=== PATIENT | female | born 1950 | race Caucasian/White ===

== ENCOUNTER 2017-11-26 08:39 | Emergency (ER) | payer MEDICARE, SELFPAY ==
[2017-11-26 08:40] VITALS: BP 158/80; PULSE 49; RESP 17; TEMP 36.5; O2SAT 97; BMI 25.2
[2017-11-26 11:16] VITALS: BP 191/87; PULSE 69; RESP 18; O2SAT 97
--- NOTE | 2017-11-26 12:15 | ED.VIS.GEN ---
History of Present Illness Chief Complaint: Allergic Reaction Informant: Patient Onset: Today Context: Sudden Onset - After receiving Versed 2 mg IV Timing: Continuous Quality: dizzy, nausea Current Severity: Mild Maximum Severity: Moderate Worsened by: movement Relieved by: remaining still Narrative: Patient was scheduled for cataract surgery this morning, as part of her induction she was initially given Versed, and she then developed dizziness and nausea. It is unclear how quickly the symptoms started or if there were any other potential etiologic events, the patient can provide very little information/history, I did not receive a call about this patient otherwise. She was sent to the ER for further evaluation. She states she has not had this before. She thinks that she had either Ativan or Valium long time ago but does not recall. She does not remember having a reaction to those. When attempting to ask details about the dizziness, it is clear that the patient does not feel well and does not want to talk. She denies feeling spinning or sensation of movement, or feeling lightheaded or near syncopal. She states when the dizziness gets worse, it makes her feel nauseated, she does not feel nauseated right now. She received some dose of Zofran prior to arriving here. - Past Medical History (1) HTN (hypertension) Status: Chronic (2) Hyperlipidemia Status: Chronic (3) Cataracts, bilateral Status: Chronic (4) Hypothyroidism Status: Chronic Past Medical History - Allergies and Home Meds Allergies/Adverse Reactions: Allergies codeine Allergy (Verified 11/26/17 08:44) Unknown lisinopril Allergy (Verified 11/26/17 08:44) Hives midazolam [From Versed] Allergy (Verified 11/26/17 08:44) Shortness of breath Primary Care Physician: Mo Moreland, [employer] [Primary Care Provider] - Lives: Spouse/ Significant Other Smoking Status: Current every day smoker Review of Systems All systems negative except as indicated General: Reports: Malaise, - - dizziness Gastrointestinal: Reports: Nausea Physical Exam Vital Signs/Narrative: Vital Signs Temp Pulse Resp BP Pulse Ox 11/26/17 11:16 69 18 191/87 H 97 11/26/17 08:40 97.7 F L 49 L 17 158/80 H 97 Inital Vital Signs reviewed: Yes General: Well nourished, Well developed Head: Normocephalic, Atraumatic Eyes: Perrl, EOMI ENT: Moist mucous membranes, No rhinorrhea Neck: Supple, Nontender, No lymphadenopathy Cardiovascular: Regular rate, Regular rhythm, No murmurs Respiratory: No distress, CTA bilaterally, Chest nontender Abdomen: Soft, Nontender, Nondistended, Normal bowel sounds Back: Nontender, Normal Inspection Extremities: Nontender, No edema Skin: Normal color, No rash Neurological: Alert, Oriented x3, Cranial nerves II-XII grossly intact, Normal Strength, Normal Sensation Psychological: Normal affect Diagnostic/Tx/Re-eval - Medical Decision Making Patient was monitored for couple hours, her symptoms gradually and completely resolved. She feels better. I discussed with Dr. Gallegos, on-call for Dr. Fernández who was going to be her surgeon, he will pass the message along and it is okay to discharge her home, they will follow-up on rescheduling her surgery. ED Disposition - Plan for ED Patient: Disposition: Home or Assisted Living Chief Complaint: Allergic Reaction Diagnosis: Medication reaction Instructions: ED Drug React Adverse Other Referrals: Mo Moreland NP-Rodger [Primary Care Provider] - Markos Fernández MD [STAFF PHYSICIAN] - Additional Instructions: Your eye doctor will get in touch with you about rescheduling your surgery.
== END 2017-11-26 12:36 | disposition home or self-care (01) ==
PROVIDERS: Emergency Provider Emergency Medicine; Family Provider Nurse Practitioner Family; PCP Nurse Practitioner Family
DX: R42 Dizziness and giddiness (principal); T42.4X5A Adverse effect of benzodiazepines, initial encounter; Y92.239 Unspecified place in hospital as the place of occurrence of the external cause; I10 Essential (primary) hypertension; E78.5 Hyperlipidemia, unspecified; E03.9 Hypothyroidism, unspecified; F17.200 Nicotine dependence, unspecified, uncomplicated
CPT/HCPCS: 99284

== ENCOUNTER → 2019-02-14 14:20 | Outpatient (CLI) | payer MEDICARE, SELFPAY ==
--- NOTE | 2019-02-14 14:23 | CT_ITS ---
STUDY: LOW DOSE CT LUNG CANCER SCREENING REASON FOR EXAM: Female, 68 years old. Lung screening RADIATION DOSAGE (If Supplied By Facility): CTDIvol = ( 1.70 ) mGy, DLP = ( 53.61 ) mGycm TECHNIQUE: No contrast was administered. Low dose technique was utilized (average mAS-38 and kVp 120). 1.25 mm axial source images with a slice interval of 1.25-mm were reconstructed in lung windows. 2.5 mm axial source images with a slice interval of 2.5-mm were reconstructed in lung windows. 5.0 mm axial source images with a slice interval of 5.0-mm were reconstructed in soft tissue windows. Nodule measured using lung windows on PACS and/or independent workstation with automated measurement of minimum and maximum diameter. Nodule measurement reported as average diameter rounded to the nearest whole number. Growth is defined as an increase ins size of greater than 1.5 mm. COMPARISON: None. Findings: There are no focal high-risk pulmonary findings. There is moderate apical predominant emphysema. Central airways are patent. Pleural surfaces are intact. Mediastinal contents are evaluated in the limited fashion due to limitations of the scan. Cardiac chambers are normal in size and shape. There is advanced coronary artery disease. Pericardium is normal. Osseous structures are intact. There is likely demineralization/osteoporosis. CT/Low Dose CT Lung Screening IMPRESSION: 1. Lung-RADS category 1. 2. Moderate emphysema. 3. At least moderate coronary artery disease. Cardiology referral is advised. 4. Presumed osteoporosis. Endocrinology referral is advised. IMPORTANT NOTES FOR USE: ACR Lung-RADS Version 1.0 Assessment Categories Release Date: July 25, 2013 Category: Coded 0-4 bases on nodule(s) with highest degree of suspicion. Negative screen is defined as categories 1 and 2; a positive screen is defined as categories 3 and 4. Category 3 and 4A nodules that are unchanged on interval CT should be coded as category 2, and individuals returned to screening in 12 months. Category 4X: Category 3 or 4 nodules with additional imaging findings that increase the suspicion of lung cancer, such as spiculation, GGN that doubles in size in 1 year, enlarged lymph notes, etc. Category Modifiers: S (significant finding unrelated to lung cancer) and C (prior history of treated lung cancer) may be added to the 0-4 Lung-RADS Electronically Signed: Jeffrey Cole, at 17:44 EST Tel , Service support ,
== END ==
PROVIDERS: Family Provider Nurse Practitioner Family; PCP Nurse Practitioner Family
DX: F17.210 Nicotine dependence, cigarettes, uncomplicated (principal)
CPT/HCPCS: G0297

== ENCOUNTER → 2020-08-31 08:00 | Outpatient (CLI) | payer MEDICARE, MEDICAID, SELFPAY ==
--- NOTE | 2020-08-31 08:03 | AAVD_ITS ---
Reason For Study: AAA w/o rupture Aorta Measurements Aorta Doppler Measurements Proximal aorta measures2.26 x 2.26cm. in cross- Peak systolic flow velocities within the proximal sectional axis. aorta measure 71.6 cm/sec. Proximal aorta measures2.27cm. in longitudinal Peak systolic flow velocities within the mid aorta axis. measure 53.4 cm/sec. Mid aorta measures3.54 x 4.24cm. in cross- Peak systolic flow velocities within the distal sectional axis. aorta measure 29.6 cm/sec. Mid aorta measures3.68cm. in longitudinal axis. Distal aorta measures2.30 x 2.45cm. in cross- sectional axis. Distal aorta measures2.41cm. in longitudinal axis. Left Iliac Artery Left iliac artery measures 0.78 x 0.78 cm. in the cross-sectional axis. Left iliac artery measures 0.80 cm. in the longitudinal axis. Peak systolic velocity in the left iliac artery measures 143.5 cm/sec. Right Iliac Artery Right iliac artery measures 0.79 x 0.79 cm. in the cross-sectional axis. Right iliac artery measures 0.82 cm. in the longitudinal axis. Peak systolic velocity in the right iliac artery measures 312.3 cm/sec. Procedure Aorta IVC Iliac vasculature or bypass grafts 08034. Exam performed in department. VL/Abd Aortic/IVC Duplex scan Interpretation Summary Aortic aneurysm measuring 3.5 x 4.2 cm. Also moderate to severe right iliac saba nosis. Ordering Physician: Aman Chaudhary Referring Physician: Mo Moreland Performed By: Bess Natarajan RVT and Student
== END ==
PROVIDERS: PCP Nurse Practitioner Family; Referring Provider Surgery Vascular Surgery; Visit Provider Surgery Vascular Surgery
DX: I71.4 Abdominal aortic aneurysm, without rupture (principal)
CPT/HCPCS: 93978

== ENCOUNTER 2021-05-22 15:43 | Outpatient (CLI) | payer MEDICARE, MEDICAID, SELFPAY ==
--- NOTE | 2021-05-22 15:55 | CT_ITS ---
STUDY: LOW DOSE CT LUNG CANCER SCREENING REASON FOR EXAM: Female, 70 years old. Long history of smoking. Screening for lung cancer. RADIATION DOSAGE (If Supplied By Facility): CTDIvol = ( 2.01 ) mGy, DLP = ( 69.47 ) mGycm TECHNIQUE: No contrast was administered. Low dose technique was utilized (average mAS-38 and kVp 120). 1.25 mm axial source images with a slice interval of 1.25-mm were reconstructed in lung windows. 2.5 mm axial source images with a slice interval of 2.5-mm were reconstructed in lung windows. 5.0 mm axial source images with a slice interval of 5.0-mm were reconstructed in soft tissue windows. Nodule measured using lung windows on PACS and/or independent workstation with automated measurement of minimum and maximum diameter. Nodule measurement reported as average diameter rounded to the nearest whole number. Growth is defined as an increase ins size of greater than 1.5 mm. COMPARISON: None. NODULES: There is hyperinflation of the lungs consistent with chronic obstructive lung disease (COPD). Centrilobular emphysema is noted in both lungs more prominent in the upper lobes. There are no suspicious lung nodules There are no endobronchial lesions. There is no demonstrated pleural abnormality. Normal heart and pericardium. Normal mediastinum. Normal hilar regions. Normal unenhanced pulmonary arteries. Normal aorta arch and descending thoracic aorta. Normal osseous structures. There is no demonstrated abnormality of the visualized upper abdomen. CT/Low Dose CT Lung Screening IMPRESSION: Lung-RADS category 2. Benign findings. COPD and emphysema. There is no evidence of malignancy. Recommendation: Routine screening CT scan in one year. IMPORTANT NOTES FOR USE: ACR Lung-RADS Version 1.0 Assessment Categories Release Date: July 25, 2013 Category: Coded 0-4 bases on nodule(s) with highest degree of suspicion. Negative screen is defined as categories 1 and 2; a positive screen is defined as categories 3 and 4. Category 3 and 4A nodules that are unchanged on interval CT should be coded as category 2, and individuals returned to screening in 12 months. Category 4X: Category 3 or 4 nodules with additional imaging findings that increase the suspicion of lung cancer, such as spiculation, GGN that doubles in size in 1 year, enlarged lymph notes, etc. Category Modifiers: S (significant finding unrelated to lung cancer) and C (prior history of treated lung cancer) may be added to the 0-4 Lung-RADS Electronically Signed: Breezy Hyman MD at 0:51 EST ,
== END 2021-05-22 23:59 | disposition home or self-care (01) ==
PROVIDERS: PCP Nurse Practitioner Family; Referring Provider Nurse Practitioner Family; Visit Provider Nurse Practitioner Family
DX: Z12.2 Encounter for screening for malignant neoplasm of respiratory organs (principal); Z87.891 Personal history of nicotine dependence
CPT/HCPCS: 71271

== ENCOUNTER → 2022-04-18 | Outpatient (CLI) | payer MEDICARE, MEDICAID, SELFPAY ==
--- NOTE | 2022-04-18 15:49 | CT_ITS ---
EXAM: CT ABDOMEN AND PELVIS WITHOUT INTRAVENOUS CONTRAST CLINICAL INDICATION: AAA WITHOUT RUPTURE TECHNIQUE: Helically acquired images were obtained of the abdomen and pelvis without intravenous contrast. This CT exam was performed using one or more of the following dose reduction techniques: automated exposure control, adjustment of the mA and/or kV according to patient size, and/or use of iterative reconstruction technique. This report was created using [employer] report generation technology. COMPARISON: None. FINDINGS: LOWER THORAX: Unremarkable. Lung bases are clear. No cardiomegaly. No significant pericardial effusion. ABDOMEN: LIVER: Unremarkable. Homogeneous. GALLBLADDER AND BILE DUCTS: Gallstones present but no inflammation. No gallbladder distention or wall edema. No intra- or extrahepatic biliary ductal dilation. PANCREAS: Unremarkable. No focal cystic mass. SPLEEN: Unremarkable. Normal size without focal cystic or solid mass. ADRENALS: Unremarkable. No nodules. KIDNEYS AND URETERS: Unremarkable. Normal renal size and position. No hydronephrosis. STOMACH AND BOWEL: Unremarkable. No stomach or bowel distention. No focal inflammatory change. PELVIS: APPENDIX: No evidence of acute appendicitis. BLADDER: Unremarkable. REPRODUCTIVE: Patient status post hysterectomy. ABDOMEN and PELVIS: INTRAPERITONEAL SPACE: Unremarkable. No ascites or other fluid collection. No free air. BONES/JOINTS: Unremarkable. No suspicious lytic or blastic abnormality. SOFT TISSUES: Unremarkable. No discrete abdominal or pelvic wall hernia. VASCULATURE: There is an aortobiiliac endograft in place. Abdominal aorta is non-dilated. LYMPH NODES: Unremarkable. No enlarged lymph nodes. CT/Abdomen/Pelvis without Cont IMPRESSION: There are biiliac endograft in place with no evidence of rupture or leakage. No acute abnormalities are identified. Electronically Signed: Donavon Olivas MD at 18:17 [facility] ,
== END | disposition home or self-care (01) ==
LOC: CT 15:44
PROVIDERS: PCP Nurse Practitioner Family; Referring Provider Surgery Vascular Surgery; Visit Provider Surgery Vascular Surgery
DX: I71.43 Infrarenal abdominal aortic aneurysm, without rupture (principal); K80.20 Calculus of gallbladder without cholecystitis without obstruction; Z90.710 Acquired absence of both cervix and uterus
CPT/HCPCS: 74176

== ENCOUNTER 2023-07-06 07:53 | Outpatient (CLI) | payer MEDICARE, MEDICAID, SELFPAY ==
--- NOTE | 2023-07-06 08:01 | AAVD_ITS ---
Reason For Study: HX AAA Endo Repair Aorta Measurements Aorta Doppler Measurements Proximal aorta measures1.71 x 1.69cm. in cross- Peak systolic flow velocities within the proximal sectional axis. aorta measure 46.6 cm/sec. Proximal aorta measures1.79cm. in longitudinal Peak systolic flow velocities within the mid aorta axis. measure 47.8 cm/sec. Mid aorta measures2.25 x 2.25cm. in cross- sectional axis. Mid aorta measures2.18cm. in longitudinal axis. HX AAA Endograft Repair noted at Mid/Dist AO Residual AAA = 3.54cm x 3.78cm in Transverse and 3.54cm in long. Rt Limb Prox = 1.13cm x 1.07cm in Transverse and 1.09cm in long. Rt Limb Dist = 0.94cm x 1.06cm in Transverse and 1.07cm in long. Rt Limb Prox PSV - 48.6cm/s Rt Limb Dist PSV - 41.3 cm/s LT Limb Prox = 1.15cm x 1.18cm in Transverse and 1.15cm in long. LT Limb Dist = 1.07cm x 1.12cm in Transverse and 1.05cm in long. LT Limb Prox PSV - 45.3cm/s LT Limb Dist PSV - 60.0 cm/s. Left Iliac Artery Left iliac artery measures 0.83 x 0.75 cm. in the cross-sectional axis. Left iliac artery measures 0.71 cm. in the longitudinal axis. Peak systolic velocity in the left iliac artery measures 77.2 cm/sec. Right Iliac Artery Right iliac artery measures 0.74 x 0.68 cm. in the cross-sectional axis. Right iliac artery measures 0.74 cm. in the longitudinal axis. Peak systolic velocity in the right iliac artery measures 72.3 cm/sec. VL/Abd Aortic/IVC Duplex scan Interpretation Summary No endoleak and patent endograft with sac 3.78cm. Ordering Physician: Aman Chaudhary Referring Physician: Violeta Crump Performed By: Gilbert Delgado RVT
--- NOTE | 2023-07-06 08:01 | RDU_ITS ---
Reason For Study: Renal Artery Stent Right Renal Artery Left Renal Artery Right renal artery ostium Unable to visualize Devang and Prox 211.5/40.4 RSV/EDV. LRA. Right renal artery proximal Left renal artery mid 284.7/42.5 202.5/32.3 PSV/EDV. PSV/EDV . Right renal artery mid 172.7/21.6 Left renal artery distal 393.5/58.5 PSV/EDV. PSV/EDV. Right renal artery distal Left RAR 7.08. 226.4/37.7 PSV/EDV. Left Renal Parenchyma Right RAR 4.07. Left upper pole medulla 34.5/11.1 Right Renal Parenchyma PSV/EDV . Upper Pole Medula 17.5/5.7 PSV/EDV. Left upper pole medulla EDR 0.30 . Right upper pole medulla EDR 0.30 . Left upper pole medulla R.I. 0.68 . Right upper pole medulla R.I. UP Cortex 20.7/5.3 PSV/EDV. 0.68 . Left upper pole cortex EDR 0.30 . Upper Emeka Cortx 13.3/5.3 PSV/EDV. Left upper pole cortex R.I. 0.74 . Right upper pole cortex EDR 0.40 . Left lower Pole medulla 24.5/6.4 Right upper pole cortex R.I. 0.40 . PSV/EDV . Right lower Pole medulla 22.8/6.2 Left lower pole medulla EDR 0.30 . PSV/EDV . Left lower pole medulla R.I. 0.74 . Right lower pole medulla EDR 0.30 . Lower Pole Cortx 13.5/5.8 PSV/EDV. Right lower pole medulla R.I. Left lower pole cortex EDR 0.40 . 0.73 . Left lower pole cortex R.I. 0.57 . Lower Pole Cortex 15.2/4.3 PSV/EDV. Left Renal Hilar Right lower pole cortex EDR 0.30 . LT Hilar avg 70.7/19.8 PSV/EDV . Right lower pole cortex R.I. 0.71 . Left hilar acceleration time 60 Right Renal Hilar m/sec. Right Hilar avg 76.9/17.9 PSV/EDV. Left Renal Dimensions Right hilar acceleration time 60 Left kidney size 9.67 cm . m/sec. Left cortical dimension 1.52 cm . Right Renal Dimensions Right kidney size 9.38 cm . Right cortical dimension 1.56 cm . Aorta Proximal abdominal aorta 1.62 x 1.72 cm . Mid abdominal aorta 2.08 x 2.10 cm . Proximal abdominal aorta peak systolic velocity is 55.4 cm/sec . Mid abdominal aorta peak systolic velocity is 42.1 cm/sec . Endograft noted at Mid/Dist AO. Procedures Renal Artery Duplex with B-Mode, Color and Pulsed Wave Doppler Technically difficult exam. Patient smoked before test. VL/Renal Artery Duplex Ultrasound Interpretation Summary Bilateral renal artery with >60% stenosis. Ordering Physician: Aman Chaudhary Referring Physician: Aman Chaudhary Performed By: Gilbert Delgado RVT
--- NOTE | 2023-07-06 08:01 | ART_ITS ---
Reason For Study: HX AAA Endo Repair Procedure A bilateral lower extremity continuous wave Doppler with analog waveform analysis and ankle brachial indexes. Left Segmental Pressures Left brachial= 168mmHg. Left posterior tibial artery = 156mmHg. Left dorsalis pedis artery = 161mmHg. Left digit = 116 mmHg. The left posterior tibial artery waveforms are biphasic. The left dorsalis pedis waveforms are biphasic. Right Segmental Pressures Right brachial= 159mmHg. Right posterior tibial artery = 148mmHg. Right dorsalis pedis artery = 133mmHg. Right digit = 84 mmHg. The right posterior tibial artery waveforms are biphasic. The right dorsalis pedis waveforms are biphasic. Indices The right ankle brachial index by the posterior tibial artery is 0.88. The right ankle brachial index by the dorsalis pedis is 0.79. The right digital-brachial index is 0.50. The left ankle brachial index by the posterior tibial artery is 0.93. The left ankle brachial index by the dorsalis pedis is 0.96. The left digital-brachial index is 0.69. VL/Ankle Brachial Index Interpretation Summary Bilateral biphasic at rest and JAQUI 0.88 and 0.96. Ordering Physician: Aman Chaudhary Referring Physician: Violeta Crump Performed By: Gilbert Delgado RVT
== END 2023-07-06 23:59 | disposition home or self-care (01) ==
LOC: CVS 07:57
PROVIDERS: Referring Provider Surgery Vascular Surgery; Visit Provider Surgery Vascular Surgery
DX: I71.40 Abdominal aortic aneurysm, without rupture, unspecified (principal); I10 Essential (primary) hypertension; K21.9 Gastro-esophageal reflux disease without esophagitis; J98.9 Respiratory disorder, unspecified; N28.9 Disorder of kidney and ureter, unspecified; E78.70 Disorder of bile acid and cholesterol metabolism, unspecified; Z95.828 Presence of other vascular implants and grafts
CPT/HCPCS: 93922; 93975; 93978

== ENCOUNTER → 2025-03-10 | Outpatient (CLI) | payer MEDICARE, MEDICAID, SELFPAY | END | disposition home or self-care (01) | PROVIDERS: Referring Provider Surgery Vascular Surgery; Visit Provider Surgery Vascular Surgery | DX: I10 Essential (primary) hypertension (principal); I71.40 Abdominal aortic aneurysm, without rupture, unspecified; Z95.828 Presence of other vascular implants and grafts; R09.89 Other specified symptoms and signs involving the circulatory and respiratory systems | CPT/HCPCS: 93922; 93975; 93978 ==